=== PATIENT | male | born 1950 | race Caucasian/White ===

== ENCOUNTER 2016-10-25 11:12 | Day surgery (SDC) | payer OTHER ==
[2016-10-25] MEDS ORDERED: LACTATED RINGERS 1,000 ML IV ONE (11:23)
--- NOTE | 2016-10-25 12:13 | SURGERY HX AND PHYSICAL(T) ---
Surgical History & Physical - PMH/PSH/Social Hx Does the pt have a hx of MRSA?: No Cardiovascular: None Respiratory: None Skin: None Endocrine/Autoimmune: None Gastrointestinal: GERD, Hiatal hernia Urinary: None Musculoskeletal: None Psychiatric: None - Home Meds and Allergies Home Medications: raNITIdine [Zantac] 150 mg PO DAILY 10/25/16 Allergies/Adverse Reactions: Allergies Allergy/AdvReac Type Severity Reaction Status Date / Time amoxicillin AdvReac runs Verified 10/25/16 11:28 - Vital Signs Temperature: 36.6 C Respiratory Rate: 16 O2 Saturation: 98 Weight (kg): 94 kg Height: 1.88 m - Patient Review Patient Review: Problems were reviewed with the patient during this visit. Medications were reviewed with the patient during this visit. Allergies were reviewed this patient during this visit. Pertinent Tests Reviewed: All pertitent test for this patient were reviewed. - Assessment & Plan Assessment and Plan: The patient was initially seen and evaluated on September 23, 2016 for the exact same reasons but because more than 30 days were allowed to elapse between the date he was evaluated in the procedure this update history and physical is mandated. There are no changes to the history and physical below. Dr. Analy Doyle sent this very pleasant 66 year-old male to my office in consultation for the aforementioned reasons back on September 23, 2016. Recently , he has noticed that instead of having one bowel movement a day he will have 1 bowel movement followed by 2 or 3 others. This is definitely a change for him. Additionally his mother was diagnosed with colon cancer. Due to his family history and has been recommended that he have colonoscopies every 5 years. He denies nausea, vomiting, constipation, melena, hematochezia, hematemesis, abdominal pain, unexplained weight loss, or change in the color, character or caliber of his stool. Of note, he will have some diarrhea after eating cereal. Dr. Laci Harp performed his colonoscopy on November 11, 2010 noting that he had a previous examination in 1987 which was normal. At that time no pathology was found but Dr. Laci Harp's note states that the patient did not have a family history of colon cancer and he recommended a repeat colonoscopy in 10 years time. The patient confirms with me that his mother had colon cancer. Allergies: * MELOXICAM (Critical) AMOXICILLIN (Critical) * WHEAT (Critical) Current Meds: SUPREP BOWEL PREP SOLN (NA SULFATE-K SULFATE-MG SULF) Take one (6oz) bottle by mouth the PM before colonoscopy & one (6oz) bottle by mouth the AM of colonoscopy as directed by surgical clinic ZANTAC 150 MAXIMUM STRENGTH TABS (RANITIDINE HCL TABS) Take 1 tab by mouth daily as needed Past Medical History: GERD Hiatal Hernia ED Past Surgical History: None Family History Summary: Mother (biol.) - Has Family History of Colon Cancer Risk Factors: Smoked Tobacco Use: Former smoker Cigarettes: Yes Year started: 1969 Years smoked: 12 Year quit: 1981 Years Since Last Quit: 35 Drug use: no Alcohol use: yes Type: Wine Drinks per day: 2 Exercise: yes Times per week: 2 - 4 Type of Exercise: golf, bike Previous Tobacco Use: Smoked Tobacco Use: Former smoker Cigarettes: Yes Year started: 1969 Years smoked: 12 Year quit: 1981 Years Since Last Quit: 35 years, 8 months, 4 days Drug use: no Review of Systems CONSTITUTIONAL: No weight loss, fever, chills, weakness or fatigue. HEENT: Eyes: No visual loss, blurred vision, double vision or yellow sclerae. Ears, Nose, Throat: No hearing loss, sneezing, congestion, runny nose or sore throat. SKIN: No rash or itching. CARDIOVASCULAR: No chest pain, chest pressure or chest discomfort. No palpitations or edema. RESPIRATORY: No shortness of breath, cough or sputum. GASTROINTESTINAL: See above. GENITOURINARY: No dysuria. Some impotence. NEUROLOGICAL: No headache, dizziness, syncope, paralysis, ataxia, numbness or tingling in the extremities. No change in bowel or bladder control. MUSCULOSKELETAL: No muscle, back pain, joint pain or stiffness. HEMATOLOGIC: No anemia, bleeding or bruising. LYMPHATICS: No enlarged nodes. No history of splenectomy. PSYCHIATRIC: No history of depression or anxiety. ENDOCRINOLOGIC: No reports of sweating, cold or heat intolerance. No polyuria or polydipsia. ALLERGIES: No history of asthma, hives, eczema or rhinitis. Physical Exam General: 66-year old male, appears stated age, well developed, well nourished HEENT: Normocephalic, atraumatic, extraocular movement intact, mucous membranes pink and moist, sclera anicteric and not injected, becerra white hair and mustache Neck: Supple without pain on palpation, mass or bruit Cardiac: Regular rate and rhythm without rub, gallop, or murmur Chest: Clear to auscultation bilaterally Abdomen: Soft, nontender, normoactive bowel sounds, no hepatomegaly, no splenomegaly Genitourinary: Deferred Rectal: Deferred until colonoscopy Extremities: No gross neurovascular problem, no clubbing, cyanosis or edema Gait: No gross motor deficit Psychiatric: Alert and oriented to person place and time, asks and answers questions appropriately, mood and affect appropriate Impression & Recommendations: Change in bowel habits and family history of colon cancer (mother). Screening colonoscopy with possible biopsies and/or polypectomies. Indications, procedure , alternatives (such as barium enema, Cologuard and even no procedure at all) and risks including but not limited to perforation requiring operative repair, bleeding with its risks, and were fully explained to him. In the office, I alvin diagrams explaining the colonic anatomy and the proposed procedure and handed it to him. In the office, conscious sedation was discussed at length with him as were its risks including but not limited to loss of airway, aspiration, respiratory depression, and not enough relief of pain and anxiety and he indicated that he wished to have conscious sedation for his procedure. In the office, I explained that MAC anesthesia is associated with a higher incidence of colon perforation. Review of his history does not reveal any significant systemic disease that would contraindicate use of conscious sedation or MAC anesthesia. All questions were fully answered. Verbal and written consent was obtained. The patient in preparation for his colonoscopy has been n.p.o. and his colon has been mechanically prepped. 20 minutes of reek-oy-deuv time spent with the patient the majority of which was spent in discussion and in the generation of this document
[2016-10-25] MEDS ORDERED: MIDAZOLAM 2 MG/2 ML VIAL IVP ONE (12:19)
[2016-10-25] MEDS ORDERED: fentaNYL 100 MCG/2 ML VIAL IVP ONE (12:19)
[2016-10-25 13:17] VITALS: BP 90/56
== END 2016-10-25 11:13 | disposition home or self-care (01) ==
LOC: SDS 11:12
PROVIDERS: ATTEND Surgery
PROC: 0DJD8ZZ Inspection of Lower Intestinal Tract, Via Natural or Artificial Opening Endoscopic (ICD-10-PCS; principal; 2016-10-25 12:15)
DX: R19.4 Change in bowel habit (principal); Z80.0 Family history of malignant neoplasm of digestive organs; Z87.891 Personal history of nicotine dependence
CPT/HCPCS: 45378; J7120

== ENCOUNTER 2022-03-04 20:14 | Emergency (ER) | payer MEDICARE, OTHER ==
[2022-03-04 20:36] LABS: BASOPHILS # (AUTO) 0.1 10^3/uL (0.0-0.1); BASOPHILS % (AUTO) 0.5 %; EOSINOPHILS % (AUTO) 0.3 %; HCT - HEMATOCRIT 47.2 % (42.0-52.0); HGB - HEMOGLOBIN 15.6 g/dL (14.0-18.0); LYMPHOCYTES % (AUTO) 9.2 %; MEAN CORPUSCULAR HEMOGLOBIN 31.2 pg (27.0-31.0); MEAN CORPUSCULAR HGB CONC 33.1 g/dL (32.0-36.0); MEAN CORPUSCULAR VOLUME 94.4 fL (80.0-94.0); MEAN PLATELET VOLUME 9.7 fL (7.4-11.4); MONOCYTES # (AUTO) 0.5 10^3/uL (0.0-1.0); MONOCYTES % (AUTO) 5.1 %; NEUTROPHILS # (AUTO) 8.9 10^3/uL (1.5-6.6); NEUTROPHILS % (AUTO) 84.3 %; PLT - PLATELET COUNT 229 10^3/uL (130-450); RED CELL DISTRIBUTION WIDTH 12.2 % (12.0-15.0); WHITE BLOOD COUNT 10.5 x10^3/uL (4.8-10.8)
[2022-03-04 20:52] LABS: ALBUMIN 4.9 g/dL (3.2-5.5); ALBUMIN/GLOBULIN RATIO 1.6 (1.0-2.2); BILIRUBIN,TOTAL 1.4 mg/dL (0.2-1.0); CALCIUM 9.1 mg/dL (8.5-10.3); CREATININE 1.3 mg/dL (0.6-1.2); POTASSIUM 3.9 mmol/L (3.5-5.0); TOTAL PROTEIN 7.9 g/dL (6.7-8.2)
[2022-03-04] MEDS ORDERED: HYDROmorphone 0.5 MG/0.5 ML SYRINGE IVP STA (21:15)
[2022-03-04] MEDS ORDERED: ONDANSETRON 4 MG/2 ML VIAL IVP STA (21:15)
[2022-03-04] MEDS ORDERED: iohexoL-300 100 ML VIAL ONE (21:18)
[2022-03-04 21:30] LABS: BILIRUBIN,URINE NEGATIVE (NEGATIVE); GLUCOSE, URINE (UA) NEGATIVE (NEGATIVE); KETONES,URINE (UA) 15 mg/dL (NEGATIVE); LEUKOCYTE ESTERASE, URINE NEGATIVE (NEGATIVE); NITRITE,URINE NEGATIVE (NEGATIVE); OCCULT BLOOD,URINE NEGATIVE (NEGATIVE); PH,URINE 5.5 PH (5.0-7.5); PROTEIN,URINE NEGATIVE (NEGATIVE); UROBILINOGEN,URINE 0.2 (NORMAL) E.U./dL (NORMAL)
--- NOTE | 2022-03-04 21:39 | ED Physician Documentation ---
History of Present Illness - Stated complaint Stated Complaint: ABD PX - Chief complaint Chief Complaint: Abd Pain - History obtained from History obtained from: Patient - Additonal information Additional information: The patient comes to the emergency department chief complaint of sudden onset abdominal pain 1500 today. The patient states he had just eaten some salmon and began to feel pain in his mid upper abdomen. He felt nauseated but did not vomit. He does note that he has been constipated has not had a regular bowel movement in the last 2 days. The patient denies any history of gallbladder issues. He has not had any fevers or chills. No respiratory symptoms. No one has been sick at home. No one who ate the same food as him has felt ill either. Review of Systems Constitutional: reports: Reviewed and negative Eyes: reports: Reviewed and negative Ears: reports: Reviewed and negative Nose: reports: Reviewed and negative Throat: reports: Reviewed and negative Cardiac: reports: Reviewed and negative Respiratory: reports: Reviewed and negative GI: reports: Abdominal Pain, Nausea : reports: Reviewed and negative Skin: reports: Reviewed and negative Musculoskeletal: reports: Reviewed and negative Neurologic: reports: Reviewed and negative Psychiatric: reports: Reviewed and negative Endocrine: reports: Reviewed and negative Immunocompromised: reports: Reviewed and negative PD PAST MEDICAL HISTORY - Past Medical History Cardiovascular: None Respiratory: None Endocrine/Autoimmune: None GI: GERD, Hiatal hernia : None Psych: None Musculoskeletal: None Derm: None - Present Medications Home Medications: Ambulatory Orders Medication Instructions Recorded Confirmed Magnesium Citrate 148 ml PO Q12H PRN #296 ml 03/04/22 - Allergies Allergies/Adverse Reactions: Allergies Allergy/AdvReac Type Severity Reaction Status Date / Time amoxicillin AdvReac runs Verified 03/04/22 20:19 PD ED PE NORMAL - Vitals Vital signs reviewed: Yes - General General: Alert and oriented X 3, No acute distress, Well developed/nourished - HEENT HEENT: Atraumatic, PERRL, EOMI, Moist mucous membranes - Neck Neck: Supple, no meningeal sign - Cardiac Cardiac: RRR, No murmur, Strong equal pulses - Respiratory Respiratory: No respiratory distress, Clear bilaterally - Abdomen Abdomen: Soft, Non tender, Non distended - Derm Derm: Normal color, Warm and dry, No rash - Extremities Extremities: No deformity - Neuro Neuro: Alert and oriented X 3 - Psych Psych: Normal mood, Normal affect Results - Vitals Vitals: Oxygen O2 Source Room air - Labs Labs: Laboratory Tests 03/04/22 03/04/22 03/04/22 20:29 20:29 21:18 WBC 10.5 RBC 5.00 Hgb 15.6 Hct 47.2 MCV 94.4 H MCH 31.2 H MCHC 33.1 RDW 12.2 Plt Count 229 MPV 9.7 Neut # (Auto) 8.9 H Lymph # (Auto) 1.0 L [place] # (Auto) 0.5 Eos # (Auto) 0.0 Baso # (Auto) 0.1 Absolute Nucleated RBC 0.00 Nucleated RBC % 0.0 Sodium 140 Potassium 3.9 Chloride 106 Carbon Dioxide 25 Anion Gap 9.0 BUN 28 H Creatinine 1.3 H Estimated GFR (MDRD) 54 L Glucose 132 H Calcium 9.1 Total Bilirubin 1.4 H AST 28 ALT 32 Alkaline Phosphatase 91 Total Protein 7.9 Albumin 4.9 Globulin 3.0 Albumin/Globulin Ratio 1.6 Lipase 38 Urine Color YELLOW Urine Clarity CLEAR Urine pH 5.5 Ur Specific [place] >=1.030 H Urine Protein NEGATIVE Urine Glucose (UA) NEGATIVE Urine Ketones 15 H Urine Occult Blood NEGATIVE Urine Nitrite NEGATIVE Urine Bilirubin NEGATIVE Urine Urobilinogen 0.2 (NORMAL) Ur Leukocyte Esterase NEGATIVE Ur Microscopic Review NOT INDICATED Urine Culture Comments NOT INDICATED - Rads (name of study) CT abdomen and pelvis Radiology: Final report received, See rad report (Mild wall thickening of the colon) PD Medical Decision Making - ED course Complexity details: reviewed results, re-evaluated patient, considered differential, d/w patient ED course: The patient was worked up with laboratory studies including CBC and ER abdominal panel, both which were ordered and reviewed by me. These were both unremarkable. The patient was sent for CT scan of the abdomen and pelvis which showed a focal segment of colon wall thickening, which could be due to low volume versus colitis. I did not feel the patient's symptoms were consistent with colitis, and definitely did not feel he needed antibiotics at this time. We have discussed symptomatic management at home, as well as the usual indications for return. Departure - Departure Disposition: Home, Self Care Clinical Impression: Abdominal pain Qualifiers: Abdominal location: upper abdomen, unspecified Qualified Code(s): R10.10 - Upper abdominal pain, unspecified Constipation Qualifiers: Constipation type: unspecified constipation type Qualified Code(s): K59.00 - Constipation, unspecified Condition: Stable Instructions: ED Constipation, ED Abdominal Pain Unkn Cause Male Prescriptions: Magnesium Citrate 148 ml PO Q12H PRN #296 ml PRN Reason: Constipation Comments: Your labs look good, and your CT did not show any significant findings. There is not a very large amount of stool in your colon, but if you wish to use the laxative and see if you can clear out what is there, you may do this. New pr escription has been sent to the [facility] pharmacy at your request. Please be sure you eat a high-fiber diet also to keep your stools soft. The reason for your abdominal pain is unclear. No specific cause has been found on labs or CT, and it could be that you just reacted badly to the food you ate tonight. However, if you continue to have these pains, the next step would be an endoscopy to further evaluate. Please follow-up with your primary doctor to discuss this. You may also contact Dr. Hills, who did your scopes last time. Discharge Date/Time: 03/04/22 23:54
[2022-03-04 22:03] LABS: CLARITY,URINE CLEAR (CLEAR)
[2022-03-04 22:25] VITALS: BP 178/96
--- NOTE | 2022-03-04 22:57 | CT Report ---
PROCEDURE: ABDOMEN/PELVIS W INDICATIONS: abdominal pain, no BM, nausea CONTRAST: Omni 300 100ml TECHNIQUE: After the administration of intravenous contrast, 5 mm thick sections acquired from the diaphragms to the symphysis. 5 mm thick coronal and sagittal reformats were acquired. For radiation dose reducti on, the following was used: automated exposure control, adjustment of mA and/or kV according to geoff ent size. COMPARISON: None. FINDINGS: Image quality: Excellent. Lung bases:There is mild dependent atelectasis and scarring bilaterally. Heart: Heart is normal in size. ABDOMEN: Liver:There is a small indistinct focal hypodensity in the right hepatic lobe measuring up to 0.4 cm which is too small to characterize and may represent a cyst. Gallbladder: Within normal limits without calcified gallstones. Biliary ducts: No biliary ductal dilatation. Pancreas: Unremarkable. Spleen: Normal in size. Adrenal Glands: No adrenal nodules. Kidneys and Ureters: No hydronephrosis. Stomach and Bowel: Stomach and small bowel loops are normal in caliber and wall thickness. The appen jourdan is normal in appearance. There is colonic diverticulosis without acute diverticulitis. There is n ondistention of the descending and sigmoid colon with suggestion of mild wall thickening. Peritoneum: No abnormal intraperitoneal fluid. No free air. Ventral Wall: No hernia. Abdominal Nodes: No retroperitoneal or mesenteric adenopathy by size criteria. Vessels: Aorta and inferior vena cava are normal in size. PELVIS: Pelvic Organs:There is mild to moderate enlargement of the prostate. Bladder: Unremarkable. Pelvic Nodes: No enlarged lymph nodes. Miscellaneous: No inguinal hernias. Bones: Visualized osseous structures demonstrate no suspicious lesions. IMPRESSION: 1. Nondistention of the distal colon with suggestion of mild wall thickening which may reflect a mild colitis versus artifact from nondistention. 2. No evidence of bowel obstruction. Reviewed by: Romel Horta MD on 03/04/2022 10:55 PM PST Approved by: Romel Horta MD on 03/04/2022 10:55 PM PST Station ID: [id number]
[2022-03-04] MEDS ORDERED: iohexoL-300 100 ML VIAL IVP ONE (23:01)
== END 2022-03-04 23:54 | disposition home or self-care (01) ==
LOC: ED 20:14
DX: R10.10 Upper abdominal pain, unspecified (principal); K59.00 Constipation, unspecified
CPT/HCPCS: 36415; 74177; 80053; 81003; 83690; 85025; 96374; 96375; 99283; 99284; J1170; Q9967; 81001; 87086

== ENCOUNTER 2022-04-08 10:21 | Outpatient (CLI) | payer MEDICARE ==
[2022-04-08 11:08] LABS: ALBUMIN 4.7 g/dL (3.2-5.5); ALBUMIN/GLOBULIN RATIO 1.5 (1.0-2.2); ALKALINE PHOSPHATASE 87 IU/L (42-121); ALT ALANINE AMINOTRANSFERASE 29 IU/L (10-60); AST ASPARTATE AMINOTRANSFERASE 26 IU/L (10-42); BILIRUBIN,TOTAL 1.8 mg/dL (0.2-1.0); BUN - BLOOD UREA NITROGEN 16 mg/dL (6-20); CALCIUM 9.7 mg/dL (8.5-10.3); CARBON DIOXIDE - CO2 29 mmol/L (21-32); CHLORIDE 100 mmol/L (101-111); CHOL/HDL RATIO 3.3 (<5.0); CHOLESTEROL 212 mg/dL; CREATININE 1.1 mg/dL (0.6-1.2); GFR - MDRD 66 (>89); GLUCOSE 95 mg/dL (70-100); HDL CHOLESTEROL 65 mg/dL; LDL CHOLESTEROL,CALCULATED 139 mg/dL; LDL/HDL RATIO 2.1 (<3.6); POTASSIUM 4.1 mmol/L (3.5-5.0); SODIUM 135 mmol/L (135-145); TOTAL PROTEIN 7.8 g/dL (6.7-8.2); TRIGLYCERIDES 41 mg/dL; VLDL CHOLESTEROL 8 mg/dL
[2022-04-08 11:18] LABS: THYROID STIMULATING HORMONE 1.08 uIU/mL (0.34-5.60)
[2022-04-08 12:22] LABS: ESTIMATED AVERAGE GLUCOSE 117 mg/dL (70-100); HEMOGLOBIN A1c% 5.7 % (4.27-6.07)
== END 2022-04-08 10:22 | disposition home or self-care (01) ==
LOC: LAB 10:21
PROVIDERS: ATTEND Internal Medicine
DX: K59.00 Constipation, unspecified (principal); K21.9 Gastro-esophageal reflux disease without esophagitis; R73.9 Hyperglycemia, unspecified; R35.1 Nocturia; Z79.899 Other long term (current) drug therapy
CPT/HCPCS: 36415; 80053; 80061; 83036; 83721; 84153; 84443

== ENCOUNTER 2023-01-19 06:30 | Day surgery (SDC) | payer MEDICARE ==
[~2023-01-19 06:30] MED LIST: LACTATED RINGERS 1,000 ML IV ONE
[2023-01-19 06:54] VITALS: BP 121/97; O2SAT 99
--- NOTE | 2023-01-19 08:10 | CONSULTATION NOTE ---
Consultation Report: On arrival, patient has new onset afib. EKG obtained and confirmed afib with controlled rate. Patient denies any symptoms or history. Discussed with Dr. Hills who will have hospitalist see patient prior to discharge. Will reschedule once patient has completed appropriate workup.
--- NOTE | 2023-01-19 11:42 | CONSULTATION NOTE ---
Referring Provider Name of Referring Provider:: Wellington Hills MD Consult Date: 01/19/23 Chief Complaint - Chief Complaint Chief Complaint: Asymptomatic atrial fibrillation found preoperatively History of Present Illness - Admitted From Admitted From:: Home. In PACU - History Obtained From Records Reviewed: [facility] History obtained from: Patient an Exam Limitations: None - History of Present Illness HPI Comment/Other: This gentleman is a 72-year-old white male who says he has no past medical history. He takes no pills for any medical problems. He has never had palpitations in the past. No fluttering. He is a very active gentleman that scuba dives, mountain bikes, hikes. He is here to get a colonoscopy. His family history is significant for stomach cancer and he always make sure that he is up-to-date with his preventative exams. In the preoperative area anesthesia saw him to do the urinalysis and found him to be in new onset atrial fibrillation on the telemetry unit. He is completely asymptomatic. He denies chest pain, palpitations, shortness of breath, orthopnea, edema. No changes at all and cardiovascular endurance or activity. He is followed by a primary care provider Erika. I am being asked to see the patient in consultation to see if he should go on to have a colonoscopy and what he should do in the postoperative setting History - Past Medical History Cardiovascular: reports: None Respiratory: reports: None Endocrine/Autoimmune: reports: None GI: reports: GERD, Hiatal hernia : reports: None HEENT: reports: Dental implants Psych: reports: None Musculoskeletal: reports: None Derm: reports: Rosacea MRSA Hx?: No - Past Surgical History HEENT: reports: Tonsil/Adenoidectomy - Family & Social History Family History Comment/Other: Mom at age 59 of stomach cancer. Dad at age 74 of complications of peripheral vascular disease, possible coronary artery disease. Was a heavy smoker and legs were described as chronically blue and skinny. 1 brother and 2 sisters. Brother acquired A-fib at the age of 68. His sisters acquired A-fib with it proximately age 62 and the age of 67. No children Living arrangement: At home Living Situation: With spouse/s.o. 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 He has lived in the [place] all of his life. Been for 45 years to his first . They have no children. He started smoking at the age of 17 and smoked for 12 years. Quit smoking in 1979. Smoked 1 pack/day. He drinks on a daily basis and drinks 2 to 3 glasses of wine a day. No history of alcohol withdrawal, cirrhosis, blackouts. No binge drinking. No history of recreational substance abuse. - Substance History Use: Uses substance without health or social issues: Alcohol Abuse: Recurrent use of substance despite neg consequences: NONE Dependence: Experiences withdrawal or developed tolerances: NONE - POLST Patient has POLST: No POLST Status: Full Code Meds/Allgy - Home Medications Home Medications: Ambulatory Orders Medication Instructions Recorded Confirmed Apixaban [Eliquis] 10 mg PO BID #63 tablet 01/19/23 Metoprolol Tartrate [Lopressor] 25 mg PO BID #60 tablet 01/19/23 - Allergies Allergies/Adverse Reactions: Allergies Allergy/AdvReac Type Severity Reaction Status Date / Time amoxicillin AdvReac Unknown Verified 01/18/23 13:17 Review of Systems - Constitutional Constitutional: denies: Fatigue, Fever, Chills, Malaise - Eyes Eyes: denies: Pain, Amaurosis, Field loss, Vision loss - Ears, Nose & Throat Ears, Nose & Throat: reports: Hearing loss, Dentures. denies: Ear pain, Hearing aids, Tinnitus, Vertigo, Sore throat - Cardiovascular Cariovascular: denies: Irregular heart rate, Palpitations, Chest pain, Edema, Exertional dyspnea, Decr. exercise tolerance - Respiratory Respiratory: denies: Cough, Sputum production, SOB at rest, SOB with exertion - Gastrointestinal Gastrointestinal: denies: Abdominal pain, Abdominal distention, Constipation, Diarrhea - Genitourinary Genitourinary: reports: Nocturia (2 times a night), Other (Urine stream slightly slower). denies: Dysuria, Frequency, Urgency, Hematuria, Incontinence, Urethral discharge - Musculoskeletal Musculoskeletal: denies: Muscle pain, Back pain, Muscle aches, Joint pain - Integumentary Integumentary: denies: Rash, Pruritis, Lesions, Pigment changes - Neurological Neurological: denies: General weakness, Focal weakness, Headache, Dizziness, Memory problems, Pre-existing deficit - Psychiatric Psychiatric: denies: Depression, Anxiety, Suicidal, Delusions, Hallucinations, Homicidal - Endocrine Endocrine: denies: Polyuria, Polydypsia, Polyphagia - Hematologic/Lymphatic Hematologic/Lymphatic: denies: Anemia, Bruising, Petechiae Exam - Vital Signs Reviewed Vital Signs: Yes Vital Signs: Vital Signs x48h Temp Pulse Resp BP Pulse Ox 01/19/23 06:30 36.1 C L 78 21 121/97 H 99 - Physical Exam General Appearance: positive: No acute distress, Alert, Other (Well-nourished, well-developed thin white male who is sitting in a PACU gurney, at the bedside.) Eyes Bilateral: positive: PERRL, EOMI ENT: positive: No signs of dehydration Neck: positive: No JVD. negative: Stiff neck Respiratory: positive: No respiratory distress. negative: Wheezes, Rales, Rhonchi Cardiovascular: positive: Irregularly irregular Peripheral Pulses: positive: 1+ Abdomen: positive: Non-tender, No organomegaly, Nml bowel sounds, No distention Skin: positive: Warm, Dry Extremities: positive: Non-tender, Full ROM Neurologic/Psychiatric: positive: Oriented x3, CN's nml (2-12) (Mildly deaf), Motor nml Conclusion/Plan - Problem List (1) New onset atrial fibrillation Conclusion/Plan: This shruthi gentleman has absolutely no antecedent cardiac history, or change in cardiovascular endurance. He has no feelings of being in an irregular heartbeat and denies any palpitations, fast heartbeats, or pulsatile changes. Really is completely asymptomatic. Cardiac exam is negative other than the A-fib. As such I would cancel this patient's surgery due to the fact that this is a new diagnosis. I feel who would do well with an elective colonscopy, that he will probably do just fine, but this is a new arrhythmia. I have started him on Eliquis and metoprolol. I am asking that he see his primary care provider in follow-up. Evaluation would include TSH, CBC, CMP. I doubt he is going to have any electrolyte abnormalities in that he is on no medications, has not had recent change in GI status such as with diarrhea, no recent illness. I would also recommend a TSH. His alcohol use may have induced a cardiomyopathy but it has been steady and without escalatioin for decades. I would recommend a Cardiology referral by his PCP and it can be decided if he should be sent to [facility] for evaluation and possible ablation in this very active gentleman. I have warned him not to go mountain biking, or parachute jumping while he is on Eliquis. I think he can still do the scuba diving and the golf. - Lab Results Lab results reviewed: No - Diagnostic Imaging Results Diagnostic Imaging Results: positive: Final report reviewed Diagnostic Imaging Results Comments: Preliminary echo report shows left ventricular wall thickness and ejection fraction are normal. 55 to 60% with indeterminate left ventricular filling pattern due to atrial fibrillation. No regional wall motion abnormalities. Moderate right ventricular enlargement with normal systolic ejection fraction. Mild increase in left atrial volume index. Left atrial volume is 37 mm/m. Moderate to severe right atrial enlargement. Mild aortic sclerosis but no stenosis. Thickened mitral valves but no stenosis or regurgitation. Tricuspid valve normal. RVSP at rest is 25 mmHg. Left atrial appendage thrombus could n ot be seen. But is not well-visualized.
== END 2023-01-19 06:31 | disposition home or self-care (01) ==
LOC: SDS 06:30
PROVIDERS: ATTEND Surgery
DX: Z12.11 Encounter for screening for malignant neoplasm of colon (principal); I48.91 Unspecified atrial fibrillation; I48.92 Unspecified atrial flutter; I34.0 Nonrheumatic mitral (valve) insufficiency; Z53.09 Procedure and treatment not carried out because of other contraindication; Z79.01 Long term (current) use of anticoagulants; Z79.899 Other long term (current) drug therapy; Z80.0 Family history of malignant neoplasm of digestive organs; Z82.49 Family history of ischemic heart disease and other diseases of the circulatory system
CPT/HCPCS: 93005; 93306; J7120

== ENCOUNTER 2023-05-09 09:15 | Day surgery (SDC) | payer MEDICARE ==
[2023-05-09] MEDS: LACTATED RINGERS 1,000 ML IV ONE ×2 (09:36→10:30)
--- NOTE | 2023-05-09 09:54 | ANESTHESIA ---
Pre-Anesthesia VS, & Labs - Diagnosis screening exam - Procedure colonoscopy Vital Signs: Temp Pulse Resp BP Pulse Ox O2 Flow Rate 36 C L 82 14 99 05/09/23 09:33 05/09/23 09:33 05/09/23 09:33 05/09/23 09:33 Height: 6 ft 2 in Weight (kg): 97 kg Body Mass Index: 27.4 BMI Classification: Overweight - NPO >8 hours Home Medications and Allergies Allergies/Adverse Reactions: Allergies Allergy/AdvReac Type Severity Reaction Status Date / Time amoxicillin AdvReac Unknown Verified 01/18/23 13:17 Anes History & Medical History - Anesthetic History Anesthesia Complications: reports: No previous complications - Medical History Cardiovascular: reports: Atrial fibrillation Pulmonary: reports: None Gastrointestinal: reports: None Urinary: reports: None Musculoskeletal: reports: None Endocrine/Autoimmune: reports: None Skin: reports: None Smoking Status: Never smoker Psychosocial: reports: No issues indicated History of Cancer?: No - Surgical History Eyes Ears Nose Throat (EENT): reports: Tonsil/Adenoidectomy Urologic: reports: Testicular surgery Exam General: Alert, Oriented x3, Cooperative, No acute distress Dental: WNL Mouth Openin Fingerbreadth Neck Mobility: Normal Mallampati classification: II Thyromental Distance: 4-6 cm Mental/Cognitive Status: Alert/Oriented X3, Normal for patient Plan Anesthesia Type: General, Total IV Consent for Procedure(s) Verified and Reviewed: Yes Code Status: Attempt Resuscitation ASA classification: 3-Severe systemic disease Is this case an emergency?: No
[2023-05-09] MEDS ORDERED: PROPOFOL 500 MG/50 ML 500 MG/50 ML VIAL ONE (10:21)
[2023-05-09 10:50] VITALS: BP 111/98; O2SAT 98
--- NOTE | 2023-05-09 13:15 | ANESTHESIA POST OP EVALUATION ---
Anesthesia Post Eval - Post Anesthesia Eval Vitals: Last Vital Signs Temp 36.4 C L 05/09/23 10:55 Pulse 67 05/09/23 10:55 Resp 14 05/09/23 10:55 BP 111/98 H 05/09/23 10:55 Pulse Ox 98 05/09/23 10:55 O2 Flow Rate CV Function Including HR & BP: Stable Pain Control: Satisfactory Nausea & Vomiting: Negative Mental Status: Baseline Respiratory Status: Airway Patent Hydration Status: Satisfactory Anesthesia Complications: None
== END 2023-05-09 09:16 | disposition home or self-care (01) ==
LOC: SDS 09:15
PROVIDERS: ATTEND Surgery
PROC: 0DBP8ZZ Excision of Rectum, Via Natural or Artificial Opening Endoscopic (ICD-10-PCS; principal; 2023-05-09 10:30)
DX: Z12.11 Encounter for screening for malignant neoplasm of colon (principal); K62.1 Rectal polyp; K57.30 Diverticulosis of large intestine without perforation or abscess without bleeding; K64.1 Second degree hemorrhoids; I48.91 Unspecified atrial fibrillation; Z80.0 Family history of malignant neoplasm of digestive organs
CPT/HCPCS: 45380; J7120

== ENCOUNTER 2023-06-30 14:47 | Outpatient (CLI) | payer MEDICARE | END 2023-06-30 14:48 | disposition home or self-care (01) | LOC: DI 14:47 | PROVIDERS: ATTEND Internal Medicine Cardiovascular Disease | DX: I48.91 Unspecified atrial fibrillation (principal); I07.1 Rheumatic tricuspid insufficiency; I87.8 Other specified disorders of veins | CPT/HCPCS: 36415; 84443; 93307 ==

== ENCOUNTER 2023-06-30 14:49 | Outpatient (CLI) | payer MEDICARE ==
[2023-06-30 15:28] LABS: THYROID STIMULATING HORMONE 1.69 uIU/mL (0.34-5.60)
== END 2023-06-30 14:50 | disposition home or self-care (01) ==
LOC: LAB 14:49
PROVIDERS: ATTEND Internal Medicine Cardiovascular Disease
DX: I48.91 Unspecified atrial fibrillation (principal)
CPT/HCPCS: 36415; 84443